=== PATIENT | female | born 2000 | race Caucasian/White ===

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

== ENCOUNTER → 2024-04-26 | Outpatient (CLI) | payer BC | END | disposition home or self-care (01) | LOC: LABWHC1 12:25 | PROVIDERS: ATTEND Psychiatry & Neurology Psychiatry | DX: E55.9 Vitamin D deficiency, unspecified (principal) | CPT/HCPCS: 36415; 82306 ==

== ENCOUNTER 2024-07-05 10:15 | Day surgery (SDC) | payer BC ==
[~2024-07-05 10:15] MED LIST: LACTATED RINGERS 1,000 ML BAG ONE
[2024-07-05] MEDS ORDERED: PROPOFOL 10 MG/ML 20 ML VIAL IV ONE (10:24)
--- NOTE | 2024-07-26 16:25 | OP ---
OPERATIVE REPORT DATE OF SERVICE : 07/05/2024 REQUESTING PHYSICIAN: Dr. Master García BRIEF HISTORY: The patient is a 24-year-old pleasant white female scheduled for an upper endoscopy as a part of evaluation for chronic nausea, vomiting for the last 10 days' duration. She has this symptoms at least 3 to 4 times a week associated with epigastric discomfort. She has been on Prilosec 20 mg daily with no help. She is, hence, scheduled for an upper endoscopy to evaluate for further. PROCEDURE PERFORMED: Esophagogastroduodenoscopy with biopsy. PREOPERATIVE DIAGNOSIS: Chronic intermittent nausea, vomiting for the last 10 days' duration associated with epigastric pain. ANESTHESIA: IV sedation per Anesthesia. DESCRIPTION OF PROCEDURE: After informed consent was obtained from the patient, she was brought into the endoscopy unit. IV conscious sedation was administered by Anesthesia under continuous monitoring. Initially, Olympus CF-180 video endoscope was inserted through the mouth. Esophagus intubated without any difficulty and was gradually advanced into the stomach and duodenum and carefully examined. Bulb and the second part of the duodenum appeared normal. Biopsies were done from the duodenum to evaluate for celiac disease. Scope was then withdrawn to the stomach. Adequately insufflated with air and upon careful examination, mucosa of the antrum had mild gastritis. There were patchy areas of erythema noted in the antrum as well as in the distal body of the stomach, which was biopsied. On retroflexion, the cardia and fundus appeared normal. Scope was then withdrawn to the esophagus. The GE junction was located at 37 cm from the incisors. There was a small hiatal hernia noted. She was advised to follow up with the biopsy results. In the meantime, continue with Prilosec 20 mg daily and antiemetics as needed and follow up in the office in 3 to 4 weeks. MMODL / IJN: [id number] /
== END 2024-07-05 11:15 ==
LOC: ORWHC2ENDO 10:15
PROVIDERS: ATTEND Internal Medicine Gastroenterology
DX: K29.70 Gastritis, unspecified, without bleeding (principal); K21.9 Gastro-esophageal reflux disease without esophagitis; F41.9 Anxiety disorder, unspecified; Z79.899 Other long term (current) drug therapy
CPT/HCPCS: 43239; 81025